=== PATIENT | male | born 1990 | race Caucasian/White ===

== ENCOUNTER 2024-11-23 22:18 | Emergency (ER) | payer OTHER, SELFPAY ==
[2024-11-23 22:30] VITALS: BP 147/88; PULSE 71; RESP 16; TEMP 36.7; O2SAT 98; BMI 47.1
--- NOTE | 2024-11-23 23:06 | ED.DENTAL ---
HPI - Dental/Oral General Chief complaint: Dental/Oral Stated complaint: right side tooth pain (NO NARCOTICS) Time Seen by Provider: 11/23/24 22:59 Source: patient Mode of arrival: ambulatory Limitations: no limitations History of Present Illness ED Provider: HPI Narrative: Patient's dental caries complaining of increased pain in right upper and lower molar area for last few days no fever no chills patient has not seen dentist yet Related Data Previous Rx's ?Medication ?Instructions ?Recorded amoxicillin 875 mg-potassium 1 tab PO BID #20 tabs 11/23/24 clavulanate 125 mg tablet ibuprofen 600 mg tablet 600 mg PO Q6H PRN fever or pain 11/23/24 #30 tabs Allergies Allergy/AdvReac Type Severity Reaction Status Date / Time RODENTS Allergy Intermediate ITCHY EYES Uncoded 11/23/24 22:33 Review of Systems Review of Systems: Yes all other systems are reviewed and are negative PMFSH Social History Social History Smoked in Last 30 Days: No Use of substances other than those prescribed or required for medical reasons: No Advance Directives: No Advance Directives Information Provided: Yes Do you have a plan to hurt others: No Plan Physical Exam Vital Signs: Vital Signs: Last Vital Signs Temp 98.1 F 11/23/24 23:20 Pulse 71 11/23/24 23:20 Resp 16 11/23/24 23:20 BP 147/88 H 11/23/24 23:20 Pulse Ox 98 11/23/24 23:20 O2 Del Method Room Air 11/23/24 23:20 BMI result Body Mass Index 47.1 HEENT: Teeth image:  1. Loss of tooth with tenderness no abscess 2. Caries tooth tender to touch no gum swelling no abscess Medications Administered Discontinued Medications Generic Name Dose Route Start Last Admin Trade Name Freq PRN Reason Stop Dose Admin Amoxicillin/Clavulanate Potassium 875 mg 11/23/24 23:02 11/23/24 23:17 Amoxicillin/Potassium Clav 875 Mg Tablet PO 11/23/24 23:03 875 mg ONCE ONE Administration Ibuprofen 600 mg 11/23/24 23:02 11/23/24 23:17 Ibuprofen 600 Mg Tablet PO 11/23/24 23:03 600 mg ONCE ONE Administration Medical Decision Making Medical Decision Making [facility] Narrative: Patient with pulpitis prescribe Augmentin and ibuprofen advised to follow with dentist Discharge Plan Discharge Clinical Impression: Dental caries Patient Disposition: Home, Self-Care Instructions: Toothache (ED) Additional Instructions: Take antibiotics as prescribed Ibuprofen for pain Follow up with your dentist Prescriptions: New ibuprofen 600 mg tablet 600 mg PO Q6H PRN (Reason: fever or pain) Qty: 30 0RF amoxicillin-pot clavulanate 875-125 mg tablet 1 tab PO BID Qty: 20 0RF Interventions: ED Discharge Assessment Last Done: 11/23/24 23:20 Print Language: Nigerien
[2024-11-23 23:20] VITALS: BP 147/88; PULSE 71; RESP 16; TEMP 36.7; O2SAT 98
== END 2024-11-23 23:25 | disposition home or self-care (01) ==
LOC: HO.ED 23:30
PROVIDERS: Emergency Provider Internal Medicine
DX: K02.9 Dental caries, unspecified (principal)
CPT/HCPCS: 99283; 99284

== ENCOUNTER 2024-11-26 22:20 | Emergency (ER) | payer OTHER, SELFPAY ==
[2024-11-26 22:31] VITALS: BP 150/65; PULSE 65; RESP 18; TEMP 36.6; O2SAT 99; BMI 40.7
== END 2024-11-27 04:18 | disposition left against medical advice (07) ==
PROVIDERS: Emergency Provider Emergency Medicine
DX: K08.89 Other specified disorders of teeth and supporting structures (principal); Z53.21 Procedure and treatment not carried out due to patient leaving prior to being seen by health care provider
CPT/HCPCS: 99281